=== PATIENT | female | born 1990 ===

== ENCOUNTER 2024-11-03 13:30 | Inpatient (IN) | payer OTHER ==
[~2024-11-03] VITALS: Ht 160 cm; Wt 97.5 kg
[2024-11-05] VITALS (7 sets, daily range): BP systolic 102–128; BP diastolic 59–75
[2024-11-05] MEDS ORDERED: PRENATABS RX T1 EACH PO (04:12)
[2024-11-05] MEDS ORDERED: SYNTHROID125 MCG PO (04:13)
[2024-11-05] MEDS ORDERED: AMPICILLIN SODIUM 2,000 MG VIAL IV STA (04:14)
[2024-11-05] MEDS ORDERED: RINGERS SOLUTION,LACTATED 1,000 ML IV SCH (04:15)
[2024-11-05] MEDS ORDERED: AMPICILLIN SODIUM 1,000 MG VIAL IV SCH (05:00)
[2024-11-05 05:20] LABS: URINE APPEARANCE Cloudy; URINE BILIRRUBIN Negative (NEGATIVE); URINE BLOOD Large; URINE COLOR Yellow; URINE GLUCOSE Negative (NEGATIVE); URINE LEUKOCYTE Small; URINE NITRATE Negative; URINE UROBILINOGEN 1.0 E.U./dl
[2024-11-05 05:24] LABS: URINE BACTERIA 101.9 uL (0.0-1933); URINE EPITHELIAL CELLS 55.3 uL (0.0-38.8); URINE RBC 1659.5 uL (0.0-20.8); URINE WBC 338.6 uL (0.0-23.2)
[2024-11-05 05:51] LABS: URINE CAST 1.35 uL (0.0-1.40); URINE CRYSTALS MANY /HPF; URINE KETONE 80 (NEGATIVE); URINE PROTEIN 100 (NEGATIVE)
[2024-11-05 05:56] LABS: BASO % 0.2 % (0.1-1.2); EOS # 0.02 (0.04-0.54); EOS % 0.2 % (0.7-7.0); LYMPH # 1.99 (1.18-3.74); LYMPH % 15.4 % (19.3-53.1); MEAN PLATELET VOLUME 11.40 fl (9.4-12.4); MONO # 0.70 (0.24-0.82); MONO % 5.4 % (4.7-12.5); NEUT # 10.11 (1.56-6.13); NEUT % 78.4 % (34.0-71.1); RED CELL DISTRIBUTION WIDTH 13.2 % (11.6-14.4)
[2024-11-05 05:58] LABS: INR 0.94
[2024-11-05] MEDS ORDERED: ACETAMINOPHEN 500 MG GEL..CAP PO PRN (06:15)
[2024-11-05] MEDS ORDERED: LIDOCAINE HCL 1% 10ML VIAL IJ ONE (06:15)
[2024-11-05] MEDS ORDERED: ERYTHROMYCIN BASE OPHT 1GM EACH TUBE OP ONE (06:15)
[2024-11-05] MEDS ORDERED: CHLORHEXIDINE GLUCONATE 120 ML BOTTLE TOP ONE (06:15)
[2024-11-05] MEDS ORDERED: OXYTOCIN 20 UNITS/1000ML RL PIGGYBAG IV ONE (06:45)
[2024-11-05 06:55] LABS: ALT/SGPT 24.0 U/L (12-78); AST/SGOT 19.0 U/L (15-37); BILIRUBIN TOTAL 0.26 mg/dL (0.3-1.2); BUN CREA RATIO 15.0 (7.0-25.0); CREATININE SERUM 0.71 mg/dL (0.55-1.02); GFR 94.23; GLOBULINA 3.3 G/DL (2.4-3.5); GLUCOSE FASTING 113.0 mg/dL (65-100); OSMOLALITY SERUM 281.0 MOSM/KG (275-295)
[2024-11-05] MEDS ORDERED: BENZOCAINE/MENTHOL 90 ML BOTTLE TOP SCH (09:00)
[2024-11-05] MEDS ORDERED: HYDROCORTISONE 2.5% 30 GM TUBE RECTAL SCH (09:00)
[2024-11-06 01:29] LABS: BASO % 0.2 % (0.1-1.2); EOS # 0.03 (0.04-0.54); EOS % 0.2 % (0.7-7.0); LYMPH # 2.78 (1.18-3.74); LYMPH % 15.7 % (19.3-53.1); MEAN PLATELET VOLUME 11.30 fl (9.4-12.4); MONO # 1.30 (0.24-0.82); MONO % 7.3 % (4.7-12.5); NEUT # 13.51 (1.56-6.13); NEUT % 76.1 % (34.0-71.1); RED CELL DISTRIBUTION WIDTH 13.2 % (11.6-14.4)
[2024-11-06] MEDS ORDERED: LEVOTHYROXINE SODIUM 137 MCG TABLET PO SCH (06:00)
[2024-11-06 08:00] VITALS: BP 117/71
[2024-11-06 16:30] VITALS: BP 129/80
[2024-11-07 01:50] VITALS: BP 124/75
[2024-11-07 08:41] VITALS: BP 113/71
== END 2024-11-07 12:28 | disposition home or self-care (01) | DRG 807 ==
LOC: OB/GYN 11-05 04:11 → LDR 11-05 04:11 → OB/GYN 11-05 06:28
PROVIDERS: ADMIT Specialist; ATTEND Specialist
PROC: 10E0XZZ Delivery of Products of Conception, External Approach (ICD-10-PCS; principal; 2024-11-05)
PROC: 0HQ9XZZ Repair Perineum Skin, External Approach (ICD-10-PCS; 2024-11-05)
PROC: 4A1HXCZ Monitoring of Products of Conception, Cardiac Rate, External Approach (ICD-10-PCS; 2024-11-05)
DX: O70.0 First degree perineal laceration during delivery (principal); Z37.0 Single live birth; O99.824 Streptococcus B carrier state complicating childbirth; Z3A.38 38 weeks gestation of pregnancy